=== PATIENT | male | born 1955 | race Caucasian/White ===

== ENCOUNTER 2018-10-25 08:54 | Inpatient (IN) | payer BC, OTHER ==
[2018-10-25 09:40] LABS: ADD MAN DIFF? NO
[2018-10-25 09:43] LABS: WHITE BLOOD COUNT 20.1 10^3/ul (4.8-10.8)
[2018-10-25 09:43] LABS: BASOPHILS % 0.2 % (0.0-2.0); HEMATOCRIT 28.8 % (42.0-52.0); HEMOGLOBIN 8.8 g/dl (14.0-18.0); LYMPHOCYTES # 0.8 10^3/ul (0.8-2.9); MEAN CORPUSCULAR HEMOGLOBIN 26.6 pg (29.0-33.0); MEAN CORPUSCULAR HGB CONC 30.6 g/dl (32.0-37.0); MEAN PLATELET VOLUME 10.8 fl (7.4-10.4); MONOCYTE # 0.7 10^3/ul (0.3-0.9); MONOCYTES % 3.5 % (0.0-11.0); NEUTROPHIL # 18.4 10^3/ul (1.6-7.5); NEUTROPHILS % 91.5 % (39.0-77.0); PLATELET COUNT 328 10^3/UL (140-415); RED BLOOD COUNT 3.31 10^6/ul (4.70-6.10); RED CELL DISTRIBUTION WIDTH 15.9 % (11.5-14.5)
[2018-10-25 10:02] LABS: ALANINE AMINOTRANSFERASE 24 IU/L (13-69); ALBUMIN 3.9 g/dl (3.3-4.9); ALBUMIN/GLOBULIN RATIO 1.39; ALKALINE PHOSPHATASE 62 IU/L (42-121); ANION GAP 9 (5-13); ASPARTATE AMINO TRANSFERASE 25 IU/L (15-46); BILIRUBIN,INDIRECT 0.7 mg/dl (0-1.1); BILIRUBIN,TOTAL 0.7 mg/dl (0.2-1.3); BLOOD UREA NITROGEN 19 mg/dl (7-20); CALCIUM 8.9 mg/dl (8.4-10.2); CARBON DIOXIDE 23 mmol/L (21-31); CHLORIDE 105 mmol/L (97-110); CREATININE 1.06 mg/dl (0.61-1.24); Estimated GFR > 60 mL/min (>60); GLUCOSE 121 mg/dl (70-220); POTASSIUM 4.5 mmol/L (3.5-5.1); SODIUM 137 mmol/L (135-144); TOTAL PROTEIN 6.7 g/dl (6.1-8.1)
[2018-10-25 10:12] LABS: TROPONIN-I < 0.012 ng/ml (0.000-0.120)
[2018-10-25 10:16] LABS: INR 1.09; PARTIAL THROMBOPLASTIN TIME 26.4 Sec (23.0-35.0); PROTIME 14.2 Sec (11.9-14.9); PT RATIO 1.1
[2018-10-25] MEDS: SODIUM CHLORIDE 0.9% 1L BAG IV* (10:20)
[2018-10-25] MEDS: LEVOFLOXACIN 750MG/D5W (PMX) 150 ML IVPB (10:20)
[2018-10-25 10:25] LABS: LACTIC ACID 3.3 mmol/L (0.5-2.0)
[2018-10-25 11:07] LABS: ADD UMIC YES; UR ASCORBIC ACID NEGATIVE (NEGATIVE); UR BACTERIA FEW /HPF (NONE SEEN); UR BILIRUBIN (Dip) NEGATIVE (NEGATIVE); UR BLOOD (Dip) 3+ mg/dL (NEGATIVE); UR CLARITY TURBID (CLEAR); UR COLOR YELLOW (YELLOW); UR GLUCOSE (Dip) NEGATIVE (NEGATIVE); UR KETONES (Dip) TRACE mg/dL (NEGATIVE); UR LEUKOCYTE ESTERASE (Dip) 2+ Leu/ul (NEGATIVE); UR NITRITE (Dip) NEGATIVE (NEGATIVE); UR RBC > 182 /HPF (0-5); UR SPECIFIC GRAVITY (Dip) 1.017 (1.003-1.030); UR SQUAMOUS EPITHELIAL CELL MODERATE /HPF (FEW); UR TOTAL PROTEIN (Dip) 2+ mg/dl (NEGATIVE); UR UROBILINOGEN (Dip) NEGATIVE (NEGATIVE); UR WBC > 182 /HPF (0-5)
[2018-10-25] MEDS ORDERED: MAGNESIUM HYDROXIDE 30ML CUP PO (12:00)
[2018-10-25] MEDS ORDERED: DOCUSATE SODIUM 100 MG CAP PO (12:00)
[2018-10-25] MEDS ORDERED: ONDANSETRON 4 MG INJ IV (12:00)
[2018-10-25] MEDS ORDERED: BISACODYL 10 MG SUPP PR (12:00)
[2018-10-25] MEDS ORDERED: NACL 0.9% 3 ML SYG IV (12:00)
[2018-10-25] MEDS: ACETAMINOPHEN 325 MG TAB PO ×2 (12:22→21:23)
[2018-10-25] MEDS: SOD CHLORIDE 0.9% 1,000 ML IV (13:04)
[2018-10-25 14:21] LABS: LACTIC ACID 1.5 mmol/L (0.5-2.0)
[2018-10-25] MEDS: CLOPIDOGREL 75 MG TAB PO (15:06)
[2018-10-25] MEDS: MEROPENEM 1 GM/50ML(PMX) 50 ML IVPB ×2 (15:07→23:04)
[2018-10-25] MEDS: ENOXAPARIN 40 MG/0.4 ML SYG SC (15:11)
[2018-10-25] MEDS: TAMSULOSIN (SR) 0.4 MG CAP PO (21:19)
[2018-10-25] MEDS: FAMOTIDINE 20 MG TAB PO (21:19)
[2018-10-25] MEDS: SOD CHLORIDE 0.9% 500 ML IV ×2 (21:27→22:33)
[2018-10-26] MEDS: MEROPENEM 1 GM/50ML(PMX) 50 ML IVPB ×3 (05:59→21:22)
[2018-10-26] MEDS: SOD CHLORIDE 0.9% 1,000 ML IV ×3 (06:02→23:17)
[2018-10-26 06:08] LABS: ADD MAN DIFF? NO
[2018-10-26 06:16] LABS: BASOPHILS % 0.3 % (0.0-2.0); EOSINOPHILS % 0.3 % (0.0-7.0); HEMATOCRIT 25.9 % (42.0-52.0); HEMOGLOBIN 7.8 g/dl (14.0-18.0); LYMPHOCYTES # 1.9 10^3/ul (0.8-2.9); LYMPHOCYTES % 17.4 % (15.0-51.0); MEAN CORPUSCULAR HEMOGLOBIN 26.2 pg (29.0-33.0); MEAN CORPUSCULAR HGB CONC 30.1 g/dl (32.0-37.0); MEAN CORPUSCULAR VOLUME 86.9 fl (82.0-101.0); MEAN PLATELET VOLUME 11.3 fl (7.4-10.4); MONOCYTE # 0.6 10^3/ul (0.3-0.9); MONOCYTES % 5.6 % (0.0-11.0); NEUTROPHIL # 8.5 10^3/ul (1.6-7.5); NEUTROPHILS % 75.9 % (39.0-77.0); PLATELET COUNT 241 10^3/UL (140-415); RED BLOOD COUNT 2.98 10^6/ul (4.70-6.10)
[2018-10-26 06:16] LABS: WHITE BLOOD COUNT 11.2 10^3/ul (4.8-10.8)
[2018-10-26 07:16] LABS: ALANINE AMINOTRANSFERASE 32 IU/L (13-69); ALBUMIN 2.9 g/dl (3.3-4.9); ALBUMIN/GLOBULIN RATIO 1.07; ALKALINE PHOSPHATASE 61 IU/L (42-121); ANION GAP 9 (5-13); ASPARTATE AMINO TRANSFERASE 36 IU/L (15-46); BILIRUBIN,INDIRECT 0.5 mg/dl (0-1.1); BILIRUBIN,TOTAL 0.5 mg/dl (0.2-1.3); BLOOD UREA NITROGEN 24 mg/dl (7-20); CALCIUM 7.6 mg/dl (8.4-10.2); CARBON DIOXIDE 20 mmol/L (21-31); CHLORIDE 108 mmol/L (97-110); CREATININE 1.29 mg/dl (0.61-1.24); Estimated GFR 56 mL/min (>60); GLUCOSE 91 mg/dl (70-220); MAGNESIUM 1.9 mg/dl (1.7-2.5); PHOSPHORUS 2.6 mg/dl (2.5-4.9); POTASSIUM 4.2 mmol/L (3.5-5.1); SODIUM 137 mmol/L (135-144); TOTAL PROTEIN 5.6 g/dl (6.1-8.1)
[2018-10-26] MEDS: CLOPIDOGREL 75 MG TAB PO (08:20)
[2018-10-26] MEDS: FAMOTIDINE 20 MG TAB PO ×2 (08:20→21:21)
[2018-10-26] MEDS: ENOXAPARIN 40 MG/0.4 ML SYG SC (08:25)
[2018-10-26 10:09] LABS: IRON < 10 ug/dl (35-150)
[2018-10-26 10:33] LABS: TOTAL IRON BINDING CAPACITY 303 ug/dl (241-421)
[2018-10-26] MEDS ORDERED: LEVOFLOXACIN 750MG/D5W (PMX) 150 ML IVPB (11:00)
[2018-10-26 12:43] LABS: FREE T4 (FREE THYROXINE) 1.09 ng/dl (0.78-2.44)
[2018-10-26 13:10] LABS: FERRITIN 33.6 ng/ml (11.1-264.0)
[2018-10-26 13:41] LABS: FOLATE 13.4 ng/ml (2.8-20.0)
[2018-10-26] MEDS: TAMSULOSIN (SR) 0.4 MG CAP PO (21:21)
[2018-10-26] MEDS: HYDROCODONE/APAP (5/325) TAB PO (21:28)
[2018-10-27] MEDS: MEROPENEM 1 GM/50ML(PMX) 50 ML IVPB (06:06)
[2018-10-27 06:19] LABS: ADD MAN DIFF? NO
[2018-10-27 06:32] LABS: BASOPHILS % 0.4 % (0.0-2.0); EOSINOPHILS # 0.2 10^3/ul (0.0-0.5); EOSINOPHILS % 1.9 % (0.0-7.0); HEMATOCRIT 26.7 % (42.0-52.0); HEMOGLOBIN 8.1 g/dl (14.0-18.0); LYMPHOCYTES # 2.3 10^3/ul (0.8-2.9); LYMPHOCYTES % 20.1 % (15.0-51.0); MEAN CORPUSCULAR HEMOGLOBIN 26.5 pg (29.0-33.0); MEAN CORPUSCULAR HGB CONC 30.3 g/dl (32.0-37.0); MEAN CORPUSCULAR VOLUME 87.3 fl (82.0-101.0); MEAN PLATELET VOLUME 11.1 fl (7.4-10.4); MONOCYTE # 0.8 10^3/ul (0.3-0.9); MONOCYTES % 7.2 % (0.0-11.0); NEUTROPHIL # 7.9 10^3/ul (1.6-7.5); NEUTROPHILS % 69.9 % (39.0-77.0); PLATELET COUNT 253 10^3/UL (140-415); RED BLOOD COUNT 3.06 10^6/ul (4.70-6.10); RED CELL DISTRIBUTION WIDTH 15.8 % (11.5-14.5)
[2018-10-27 06:32] LABS: WHITE BLOOD COUNT 11.3 10^3/ul (4.8-10.8)
[2018-10-27 07:08] LABS: ANION GAP 8 (5-13); BLOOD UREA NITROGEN 19 mg/dl (7-20); CARBON DIOXIDE 21 mmol/L (21-31); CHLORIDE 111 mmol/L (97-110); CREATININE 0.92 mg/dl (0.61-1.24); Estimated GFR > 60 mL/min (>60); GLUCOSE 93 mg/dl (70-220); POTASSIUM 4.6 mmol/L (3.5-5.1); SODIUM 140 mmol/L (135-144)
[2018-10-27 07:09] LABS: MAGNESIUM 2.1 mg/dl (1.7-2.5)
[2018-10-27] MEDS: ENOXAPARIN 40 MG/0.4 ML SYG SC (08:39)
[2018-10-27] MEDS: FAMOTIDINE 20 MG TAB PO ×2 (08:40→20:42)
[2018-10-27] MEDS: CLOPIDOGREL 75 MG TAB PO (08:40)
[2018-10-27] MEDS: SOD CHLORIDE 0.9% 1,000 ML IV (08:43)
[2018-10-27] MEDS: FERROUS SULFATE (EC) 325 MG TAB PO ×2 (10:42→20:42)
[2018-10-27] MEDS: LEVOFLOXACIN 750MG/D5W (PMX) 150 ML IVPB (10:42)
[2018-10-27] MEDS: TAMSULOSIN (SR) 0.4 MG CAP PO (20:42)
[2018-10-27] MEDS: ACETAMINOPHEN 325 MG TAB PO (23:07)
[2018-10-27 23:15] LABS: ADD UMIC YES; UR ASCORBIC ACID NEGATIVE (NEGATIVE); UR BILIRUBIN (Dip) NEGATIVE (NEGATIVE); UR BLOOD (Dip) 2+ mg/dL (NEGATIVE); UR CLARITY SLIGHTLY CLOUDY (CLEAR); UR COLOR YELLOW (YELLOW); UR GLUCOSE (Dip) NEGATIVE (NEGATIVE); UR KETONES (Dip) TRACE mg/dL (NEGATIVE); UR LEUKOCYTE ESTERASE (Dip) 3+ Leu/ul (NEGATIVE); UR NITRITE (Dip) NEGATIVE (NEGATIVE); UR RBC 27 /HPF (0-5); UR SPECIFIC GRAVITY (Dip) 1.019 (1.003-1.030); UR TOTAL PROTEIN (Dip) 1+ mg/dl (NEGATIVE); UR UROBILINOGEN (Dip) 1+ mg/dL (NEGATIVE); UR WBC > 182 /HPF (0-5)
[2018-10-28 05:21] LABS: OCCULT BLOOD STOOL NEGATIVE (NEGATIVE)
[2018-10-28 07:03] LABS: ADD MAN DIFF? NO
[2018-10-28 07:14] LABS: BASOPHILS % 0.3 % (0.0-2.0); EOSINOPHILS # 0.1 10^3/ul (0.0-0.5); EOSINOPHILS % 1.2 % (0.0-7.0); HEMOGLOBIN 7.4 g/dl (14.0-18.0); LYMPHOCYTES # 2.1 10^3/ul (0.8-2.9); LYMPHOCYTES % 20.8 % (15.0-51.0); MEAN CORPUSCULAR HEMOGLOBIN 26.2 pg (29.0-33.0); MEAN CORPUSCULAR HGB CONC 30.8 g/dl (32.0-37.0); MEAN CORPUSCULAR VOLUME 85.1 fl (82.0-101.0); MEAN PLATELET VOLUME 11.6 fl (7.4-10.4); MONOCYTE # 1.1 10^3/ul (0.3-0.9); MONOCYTES % 11.4 % (0.0-11.0); NEUTROPHIL # 6.6 10^3/ul (1.6-7.5); NEUTROPHILS % 65.7 % (39.0-77.0); PLATELET COUNT 234 10^3/UL (140-415); RED BLOOD COUNT 2.82 10^6/ul (4.70-6.10); RED CELL DISTRIBUTION WIDTH 15.9 % (11.5-14.5)
[2018-10-28 07:37] LABS: MAGNESIUM 2.1 mg/dl (1.7-2.5)
[2018-10-28 07:46] LABS: ANION GAP 7 (5-13); BLOOD UREA NITROGEN 15 mg/dl (7-20); CALCIUM 7.9 mg/dl (8.4-10.2); CARBON DIOXIDE 23 mmol/L (21-31); CHLORIDE 108 mmol/L (97-110); CREATININE 0.82 mg/dl (0.61-1.24); Estimated GFR > 60 mL/min (>60); GLUCOSE 96 mg/dl (70-220); POTASSIUM 4.3 mmol/L (3.5-5.1); SODIUM 138 mmol/L (135-144)
[2018-10-28] MEDS: FAMOTIDINE 20 MG TAB PO ×2 (09:02→20:29)
[2018-10-28] MEDS: CLOPIDOGREL 75 MG TAB PO (09:02)
[2018-10-28] MEDS: FERROUS SULFATE (EC) 325 MG TAB PO ×2 (09:02→20:29)
[2018-10-28] MEDS: ENOXAPARIN 40 MG/0.4 ML SYG SC (09:06)
[2018-10-28] MEDS: LEVOFLOXACIN 750MG/D5W (PMX) 150 ML IVPB (10:50)
[2018-10-28] MEDS: CYANOCOBALAMIN 500 MCG TAB GTB (12:08)
[2018-10-28] MEDS: FOLIC ACID 1 MG TAB GTB (12:08)
[2018-10-28] MEDS: ACETAMINOPHEN 325 MG TAB PO (12:08)
[2018-10-28] MEDS: HYDROCODONE/APAP (5/325) TAB PO (19:49)
[2018-10-28] MEDS: TAMSULOSIN (SR) 0.4 MG CAP PO (20:29)
[2018-10-28 21:12] LABS: PROSTATE SPECIFIC ANTIGEN 8.6 ng/ml (0.0-4.0)
[2018-10-29] MEDS: HYDROCODONE/APAP (5/325) TAB PO (01:37)
[2018-10-29 05:55] LABS: WHITE BLOOD COUNT 9.2 10^3/ul (4.8-10.8)
[2018-10-29 05:55] LABS: ADD MAN DIFF? NO; BASOPHILS % 0.3 % (0.0-2.0); EOSINOPHILS # 0.3 10^3/ul (0.0-0.5); EOSINOPHILS % 2.8 % (0.0-7.0); HEMATOCRIT 25.1 % (42.0-52.0); HEMOGLOBIN 7.7 g/dl (14.0-18.0); LYMPHOCYTES # 2.6 10^3/ul (0.8-2.9); LYMPHOCYTES % 28.2 % (15.0-51.0); MEAN CORPUSCULAR HGB CONC 30.7 g/dl (32.0-37.0); MEAN CORPUSCULAR VOLUME 84.8 fl (82.0-101.0); MEAN PLATELET VOLUME 11.8 fl (7.4-10.4); MONOCYTES % 10.5 % (0.0-11.0); NEUTROPHIL # 5.3 10^3/ul (1.6-7.5); NEUTROPHILS % 57.3 % (39.0-77.0); NUCLEATED RED BLOOD CELLS # 0.1 10^3/ul (0.0-0.0); NUCLEATED RED BLOOD CELLS% 0.5 /100WBC (0.0-0.0); PLATELET COUNT 256 10^3/UL (140-415); RED BLOOD COUNT 2.96 10^6/ul (4.70-6.10); RED CELL DISTRIBUTION WIDTH 15.9 % (11.5-14.5)
[2018-10-29 06:29] LABS: ALANINE AMINOTRANSFERASE 39 IU/L (13-69); ALBUMIN 2.9 g/dl (3.3-4.9); ALKALINE PHOSPHATASE 117 IU/L (42-121); ANION GAP 8 (5-13); ASPARTATE AMINO TRANSFERASE 39 IU/L (15-46); BILIRUBIN,INDIRECT 0.3 mg/dl (0-1.1); BILIRUBIN,TOTAL 0.3 mg/dl (0.2-1.3); BLOOD UREA NITROGEN 14 mg/dl (7-20); CALCIUM 8.2 mg/dl (8.4-10.2); CARBON DIOXIDE 25 mmol/L (21-31); CHLORIDE 107 mmol/L (97-110); CREATININE 0.75 mg/dl (0.61-1.24); Estimated GFR > 60 mL/min (>60); GLUCOSE 105 mg/dl (70-220); POTASSIUM 4.3 mmol/L (3.5-5.1); SODIUM 140 mmol/L (135-144); TOTAL PROTEIN 5.8 g/dl (6.1-8.1)
[2018-10-29 06:38] LABS: PHOSPHORUS 3.3 mg/dl (2.5-4.9)
[2018-10-29 06:38] LABS: MAGNESIUM 2.1 mg/dl (1.7-2.5)
[2018-10-29] MEDS: FAMOTIDINE 20 MG TAB PO (08:30)
[2018-10-29] MEDS: FOLIC ACID 1 MG TAB GTB (08:30)
[2018-10-29] MEDS: FERROUS SULFATE (EC) 325 MG TAB PO (08:30)
[2018-10-29] MEDS: CYANOCOBALAMIN 500 MCG TAB GTB (08:30)
[2018-10-29] MEDS: LEVOFLOXACIN 750MG/D5W (PMX) 150 ML IVPB (09:36)
== END 2018-10-29 14:20 | disposition home health service (06) | DRG 871 ==
LOC: E/R 08:54 → 2NE 11:23
DX: A41.9 Sepsis, unspecified organism (principal); N17.0 Acute kidney failure with tubular necrosis; N13.6 Pyonephrosis; N17.9 Acute kidney failure, unspecified; E53.0 Riboflavin deficiency; Z68.41 Body mass index [BMI] 40.0-44.9, adult; E66.01 Morbid (severe) obesity due to excess calories; F17.210 Nicotine dependence, cigarettes, uncomplicated; D50.9 Iron deficiency anemia, unspecified; I73.9 Peripheral vascular disease, unspecified; N40.0 Benign prostatic hyperplasia without lower urinary tract symptoms; D64.9 Anemia, unspecified; I87.8 Other specified disorders of veins; R31.0 Gross hematuria; Z79.02 Long term (current) use of antithrombotics/antiplatelets
CPT/HCPCS: 36415; 71045; 74176; 76775; 80048; 80053; 81001; 82270; 82607; 82728; 82746; 83540; 83605; 83735; 84100; 84153; 84154; 84439; 84443; 84484; 85025; 85610; 85730; 87040; 87086; 87400; 88104; 93005; 93922; 93970; 96365; 99291-25

== ENCOUNTER 2018-11-04 16:31 | Inpatient (IN) | payer BC ==
[~2018-11-04 16:31] MED LIST: MAGNESIUM SULFATE 1 GM/100 ML D5W IVPB
[2018-11-04] MEDS: ALBUTEROL 0.5% (NEB) 2.5 MG/0.5 ML AMP INH (18:19)
[2018-11-04] MEDS: IPRATROPIUM (NEB) 0.5 MG/2.5 ML AMP INH (18:19)
[2018-11-04 18:26] LABS: ADD MAN DIFF? NO
[2018-11-04] MEDS: METHYLPREDNISOLONE 125 MG INJ IV (18:29)
[2018-11-04 18:30] LABS: WHITE BLOOD COUNT 10.8 10^3/ul (4.8-10.8)
[2018-11-04 18:30] LABS: BASOPHIL # 0.1 10^3/ul (0.0-0.1); BASOPHILS % 0.6 % (0.0-2.0); EOSINOPHILS # 0.4 10^3/ul (0.0-0.5); EOSINOPHILS % 3.5 % (0.0-7.0); HEMATOCRIT 30.9 % (42.0-52.0); HEMOGLOBIN 9.3 g/dl (14.0-18.0); LYMPHOCYTES # 2.3 10^3/ul (0.8-2.9); LYMPHOCYTES % 21.5 % (15.0-51.0); MEAN CORPUSCULAR HEMOGLOBIN 25.3 pg (29.0-33.0); MEAN CORPUSCULAR HGB CONC 30.1 g/dl (32.0-37.0); MEAN CORPUSCULAR VOLUME 84.2 fl (82.0-101.0); MEAN PLATELET VOLUME 10.5 fl (7.4-10.4); MONOCYTE # 0.8 10^3/ul (0.3-0.9); MONOCYTES % 7.2 % (0.0-11.0); NEUTROPHIL # 7.2 10^3/ul (1.6-7.5); NEUTROPHILS % 66.6 % (39.0-77.0); PLATELET COUNT 458 10^3/UL (140-415); RED BLOOD COUNT 3.67 10^6/ul (4.70-6.10); RED CELL DISTRIBUTION WIDTH 17.3 % (11.5-14.5)
[2018-11-04 18:46] LABS: ANION GAP 9 (5-13); BLOOD UREA NITROGEN 18 mg/dl (7-20); CALCIUM 8.7 mg/dl (8.4-10.2); CARBON DIOXIDE 26 mmol/L (21-31); CHLORIDE 105 mmol/L (97-110); Estimated GFR > 60 mL/min (>60); GLUCOSE 103 mg/dl (70-220); POTASSIUM 4.4 mmol/L (3.5-5.1); SODIUM 140 mmol/L (135-144)
[2018-11-04 18:49] LABS: INR 1.05; PROTIME 13.8 Sec (11.9-14.9); PT RATIO 1.1
[2018-11-04 19:10] LABS: B-TYPE NATRIURETIC PEPTIDE 882 PG/ML (0-125)
[2018-11-04] MEDS: ASPIRIN 81 MG TAB PO (19:58)
[2018-11-04] MEDS: ONDANSETRON 4 MG INJ IV (20:19)
[2018-11-04] MEDS: morphine 4 MG/ML VIAL IV (20:19)
[2018-11-04] MEDS ORDERED: ACETAMINOPHEN 325 MG TAB PO (20:30)
[2018-11-04] MEDS ORDERED: ONDANSETRON 4 MG INJ IV (20:30)
[2018-11-04] MEDS: ENOXAPARIN 60 MG/0.6 ML SYG SC (21:52)
[2018-11-04] MEDS: FUROSEMIDE 40 MG INJ IV (21:52)
[2018-11-05] MEDS ORDERED: ACETAMINOPHEN 325 MG TAB PO (01:30)
[2018-11-05] MEDS: METOPROLOL 25 MG TAB PO ×2 (01:30→11:05)
[2018-11-05] MEDS: LEVOFLOXACIN 750 MG TABLET PO (09:09)
[2018-11-05] MEDS: ASPIRIN 81 MG TAB PO (09:09)
[2018-11-05] MEDS: FERROUS SULFATE (EC) 325 MG TAB PO ×2 (09:09→21:00)
[2018-11-05] MEDS: ENOXAPARIN 60 MG/0.6 ML SYG SC (09:11)
[2018-11-05 12:15] LABS: CREATINE KINASE 469 IU/L (23-200)
[2018-11-05 12:25] LABS: CK INDEX 7.7
[2018-11-05] MEDS: FUROSEMIDE 20 MG INJ IV (16:27)
[2018-11-05] MEDS ORDERED: MIDAZOLAM 1 MG/ML 2 ML INJ ×3 (17:00→18:58)
[2018-11-05] MEDS ORDERED: LORAZEPAM 2 MG INJ (17:15)
[2018-11-05] MEDS ORDERED: PROPOFOL 100 ML (17:22)
[2018-11-05] MEDS ORDERED: MAGNESIUM SULFATE 2 GM/50 ML 50 ML (17:31)
[2018-11-05] MEDS ORDERED: HEPARIN 1000 UNITS/ML 10 ML INJ (17:47)
[2018-11-05] MEDS ORDERED: LIDOCAINE 2% (MDV) 20 ML INJ (17:47)
[2018-11-05] MEDS ORDERED: IODIXANOL LOCM 100 ML BTL (17:47)
[2018-11-05] MEDS ORDERED: NITROGLYCERIN (IC) 100 MCG/ML INJ (17:48)
[2018-11-05] MEDS ORDERED: VERAPAMIL 5 MG INJ (17:48)
[2018-11-05] MEDS: LORAZEPAM 2 MG INJ IV (18:15)
[2018-11-05] MEDS ORDERED: AMIODARONE 150 MG INJ (18:27)
[2018-11-05] MEDS: MAGNESIUM SULFATE 1 GM/D5W 100 ML IVPB ×2 (18:27→18:52)
[2018-11-05] MEDS ORDERED: AMIODARONE 150MG/D5W BOLUS 100 ML IV (18:30)
[2018-11-05] MEDS ORDERED: MAGNESIUM SULFATE 2 GM/50 ML 50 ML IVPB (18:30)
[2018-11-05] MEDS ORDERED: NORepinephrine 8MG/250 ML (PMX 250 ML (18:35)
[2018-11-05] MEDS ORDERED: BIVALIRUDIN 250MG /NS 50 ML 50 ML IVPB ×3 (18:37→19:46)
[2018-11-05] MEDS ORDERED: TICAGRELOR 90 MG TABLET (18:44)
[2018-11-05] MEDS: AMIODARONE 150MG/D5W BOLUS 100 ML IV (18:49)
[2018-11-05] MEDS ORDERED: FENTAnyl 50 MCG/ML VIAL (18:49)
[2018-11-05] MEDS: MAGNESIUM SULFATE 2 GM/50 ML 50 ML IVPB (18:51)
[2018-11-05] MEDS: SOD CHLORIDE 0.9% 500 ML IV (18:51)
[2018-11-05] MEDS: MIDAZOLAM 1 MG/ML 2 ML INJ IV (18:51)
[2018-11-05] MEDS ORDERED: CANGRELOR TETRASODIUM/ NS 250 50 MG (18:59)
[2018-11-05] MEDS: BIVALIRUDIN 250MG /NS 50 ML 50 ML IVPB ×3 (19:41→22:41)
[2018-11-05] MEDS: PROPOFOL 100 ML IV ×2 (20:00→21:09)
[2018-11-05] MEDS: NORepinephrine 8MG/250 ML (PMX 250 ML IV (20:00)
[2018-11-05] MEDS: SOD CHLORIDE 0.9% 1,000 ML IV (20:44)
[2018-11-05 20:52] LABS: AADO2 Arterial 327.1 mmHg (7.0-24.0); Allen Test ACCEPTAB; Arterial Base Excess -0.6 mmol/L (-3.0-3); Arterial Blood Gas Oxygen Sat 99.8 mmHG (95.0-98.0); Arterial COHb 0 % (0.0-3.0); Arterial Fraction of Oxyhgb 99.7 % (93.0-99.0); Arterial HCO3 23.6 mmol/L (22.0-26.0); Arterial MetHb 0.1 % (0.0-1.5); MODE VENT - AC; Site Right Radial
[2018-11-05] MEDS: TICAGRELOR 90 MG TABLET PO (21:00)
[2018-11-05] MEDS: TAMSULOSIN (SR) 0.4 MG CAP PO (21:00)
[2018-11-05] MEDS: ATORVASTATIN 80 MG TAB PO (21:00)
[2018-11-05] MEDS: AMIODARONE 900 MG in DEXTROSE 5% 482 ML IV (22:00)
[2018-11-05] MEDS ORDERED: METOPROLOL 25 MG TAB PO (22:00)
[2018-11-06] MEDS: PROPOFOL 100 ML IV ×2 (01:06→06:19)
[2018-11-06 05:12] LABS: ADD MAN DIFF? NO
[2018-11-06 05:17] LABS: BASOPHILS % 0.2 % (0.0-2.0); EOSINOPHILS # 0.1 10^3/ul (0.0-0.5); EOSINOPHILS % 0.5 % (0.0-7.0); HEMATOCRIT 30.1 % (42.0-52.0); HEMOGLOBIN 9.1 g/dl (14.0-18.0); LYMPHOCYTES # 2.5 10^3/ul (0.8-2.9); LYMPHOCYTES % 15.7 % (15.0-51.0); MEAN CORPUSCULAR HEMOGLOBIN 25.4 pg (29.0-33.0); MEAN CORPUSCULAR HGB CONC 30.2 g/dl (32.0-37.0); MEAN CORPUSCULAR VOLUME 84.1 fl (82.0-101.0); MEAN PLATELET VOLUME 10.7 fl (7.4-10.4); MONOCYTE # 1.3 10^3/ul (0.3-0.9); MONOCYTES % 7.9 % (0.0-11.0); NEUTROPHILS % 74.9 % (39.0-77.0); PLATELET COUNT 477 10^3/UL (140-415); RED BLOOD COUNT 3.58 10^6/ul (4.70-6.10); RED CELL DISTRIBUTION WIDTH 17.9 % (11.5-14.5)
[2018-11-06 05:48] LABS: CK INDEX 6.1; CREATINE KINASE 325 IU/L (23-200)
[2018-11-06 05:51] LABS: ANION GAP 10 (5-13); BLOOD UREA NITROGEN 31 mg/dl (7-20); CALCIUM 7.9 mg/dl (8.4-10.2); CARBON DIOXIDE 25 mmol/L (21-31); CHLORIDE 104 mmol/L (97-110); CREATININE 1.26 mg/dl (0.61-1.24); Estimated GFR 57 mL/min (>60); GLUCOSE 145 mg/dl (70-220); POTASSIUM 4.5 mmol/L (3.5-5.1); SODIUM 139 mmol/L (135-144)
[2018-11-06 05:55] LABS: MAGNESIUM 3.3 mg/dl (1.7-2.5)
[2018-11-06] MEDS: TICAGRELOR 90 MG TABLET PO ×2 (08:57→20:33)
[2018-11-06] MEDS: ASPIRIN 81 MG TAB PO (08:58)
[2018-11-06] MEDS: FERROUS SULFATE (EC) 325 MG TAB PO ×2 (08:58→20:21)
[2018-11-06 10:36] LABS: AADO2 Arterial 134.6 mmHg (7.0-24.0); Allen Test ACCEPTAB; Arterial Base Excess -0.2 mmol/L (-3.0-3); Arterial Blood Gas Oxygen Sat 98.2 mmHG (95.0-98.0); Arterial COHb 0.5 % (0.0-3.0); Arterial Fraction of Oxyhgb 97.5 % (93.0-99.0); Arterial HCO3 23.6 mmol/L (22.0-26.0); Arterial MetHb 0.2 % (0.0-1.5); Arterial pCO2 35.7 mmhg (35-45); Blood Gas PS 10; MODE VENT - CPAP; Site Left Radial
[2018-11-06] MEDS: HYDROmorphONE 0.5 MG/0.5 ML SYG IV ×3 (17:21→22:56)
[2018-11-06] MEDS: DIPHENHYDRAMINE 50 MG CAP PO (20:21)
[2018-11-06] MEDS: ATORVASTATIN 80 MG TAB PO (20:21)
[2018-11-06] MEDS: TAMSULOSIN (SR) 0.4 MG CAP PO (20:21)
[2018-11-06] MEDS: AMIODARONE 200 MG TAB PO (20:25)
[2018-11-06] MEDS: CEPASTAT LOZENGE MT (22:28)
[2018-11-07] MEDS: CEPASTAT LOZENGE MT ×4 (01:09→21:17)
[2018-11-07] MEDS: HYDROmorphONE 0.5 MG/0.5 ML SYG IV ×9 (01:10→23:30)
[2018-11-07 05:19] LABS: ADD MAN DIFF? NO
[2018-11-07 05:23] LABS: WHITE BLOOD COUNT 12.1 10^3/ul (4.8-10.8)
[2018-11-07 05:23] LABS: BASOPHILS % 0.2 % (0.0-2.0); EOSINOPHILS # 0.3 10^3/ul (0.0-0.5); EOSINOPHILS % 2.3 % (0.0-7.0); HEMATOCRIT 28.1 % (42.0-52.0); HEMOGLOBIN 8.4 g/dl (14.0-18.0); LYMPHOCYTES # 3.8 10^3/ul (0.8-2.9); LYMPHOCYTES % 30.9 % (15.0-51.0); MEAN CORPUSCULAR HEMOGLOBIN 24.7 pg (29.0-33.0); MEAN CORPUSCULAR HGB CONC 29.9 g/dl (32.0-37.0); MEAN CORPUSCULAR VOLUME 82.6 fl (82.0-101.0); MEAN PLATELET VOLUME 10.7 fl (7.4-10.4); MONOCYTE # 0.9 10^3/ul (0.3-0.9); MONOCYTES % 7.6 % (0.0-11.0); NEUTROPHIL # 7.1 10^3/ul (1.6-7.5); NEUTROPHILS % 58.6 % (39.0-77.0); PLATELET COUNT 390 10^3/UL (140-415)
[2018-11-07 05:44] LABS: ALANINE AMINOTRANSFERASE 166 IU/L (13-69); ALBUMIN 3.1 g/dl (3.3-4.9); ALKALINE PHOSPHATASE 99 IU/L (42-121); ANION GAP 8 (5-13); ASPARTATE AMINO TRANSFERASE 137 IU/L (15-46); BILIRUBIN,INDIRECT 0.4 mg/dl (0-1.1); BILIRUBIN,TOTAL 0.4 mg/dl (0.2-1.3); BLOOD UREA NITROGEN 28 mg/dl (7-20); CALCIUM 8.2 mg/dl (8.4-10.2); CARBON DIOXIDE 27 mmol/L (21-31); CHLORIDE 104 mmol/L (97-110); Estimated GFR > 60 mL/min (>60); GLUCOSE 115 mg/dl (70-220); POTASSIUM 4.2 mmol/L (3.5-5.1); SODIUM 139 mmol/L (135-144); TOTAL PROTEIN 5.9 g/dl (6.1-8.1)
[2018-11-07 05:47] LABS: MAGNESIUM 2.3 mg/dl (1.7-2.5)
[2018-11-07 05:47] LABS: PHOSPHORUS 3.6 mg/dl (2.5-4.9)
[2018-11-07] MEDS: AMIODARONE 200 MG TAB PO ×2 (08:19→20:28)
[2018-11-07] MEDS: ASPIRIN 81 MG TAB PO (08:19)
[2018-11-07] MEDS: FERROUS SULFATE (EC) 325 MG TAB PO ×2 (08:19→20:26)
[2018-11-07] MEDS: TICAGRELOR 90 MG TABLET PO ×2 (08:22→20:38)
[2018-11-07] MEDS: TAMSULOSIN (SR) 0.4 MG CAP PO ×2 (10:43→20:27)
[2018-11-07] MEDS: DOCUSATE SODIUM 100 MG CAP PO ×2 (10:50→20:28)
[2018-11-07] MEDS: POLYETHYLENE GLYCOL 17 GM PACKET PO (10:50)
[2018-11-07] MEDS ORDERED: MAGNESIUM HYDROXIDE 30ML CUP PO (11:00)
[2018-11-07] MEDS ORDERED: BISACODYL 10 MG SUPP PR (11:00)
[2018-11-07] MEDS: FAMOTIDINE 20 MG TAB PO (11:26)
[2018-11-07] MEDS: ONDANSETRON 4 MG INJ IV (13:59)
[2018-11-07] MEDS: FUROSEMIDE 40 MG INJ IV (16:09)
[2018-11-07] MEDS: DIPHENHYDRAMINE 50 MG CAP PO (20:27)
[2018-11-07] MEDS: ATORVASTATIN 80 MG TAB PO (20:27)
[2018-11-08] MEDS: HYDROmorphONE 0.5 MG/0.5 ML SYG IV ×5 (04:06→22:22)
[2018-11-08] MEDS: FUROSEMIDE 40 MG INJ IV (05:31)
[2018-11-08 06:06] LABS: ADD MAN DIFF? NO
[2018-11-08 06:08] LABS: BASOPHILS % 0.3 % (0.0-2.0); EOSINOPHILS # 0.5 10^3/ul (0.0-0.5); EOSINOPHILS % 4.1 % (0.0-7.0); HEMATOCRIT 29.3 % (42.0-52.0); HEMOGLOBIN 8.9 g/dl (14.0-18.0); LYMPHOCYTES # 2.9 10^3/ul (0.8-2.9); LYMPHOCYTES % 23.3 % (15.0-51.0); MEAN CORPUSCULAR HEMOGLOBIN 25.1 pg (29.0-33.0); MEAN CORPUSCULAR HGB CONC 30.4 g/dl (32.0-37.0); MEAN CORPUSCULAR VOLUME 82.5 fl (82.0-101.0); MEAN PLATELET VOLUME 10.7 fl (7.4-10.4); MONOCYTES % 7.6 % (0.0-11.0); NEUTROPHILS % 64.2 % (39.0-77.0); PLATELET COUNT 459 10^3/UL (140-415); RED BLOOD COUNT 3.55 10^6/ul (4.70-6.10); RED CELL DISTRIBUTION WIDTH 17.4 % (11.5-14.5)
[2018-11-08 06:08] LABS: WHITE BLOOD COUNT 12.4 10^3/ul (4.8-10.8)
[2018-11-08 06:36] LABS: MAGNESIUM 1.9 mg/dl (1.7-2.5)
[2018-11-08 06:36] LABS: PHOSPHORUS 4.2 mg/dl (2.5-4.9)
[2018-11-08 06:42] LABS: ANION GAP 10 (5-13); BLOOD UREA NITROGEN 25 mg/dl (7-20); CALCIUM 8.9 mg/dl (8.4-10.2); CARBON DIOXIDE 28 mmol/L (21-31); CHLORIDE 100 mmol/L (97-110); CREATININE 1.01 mg/dl (0.61-1.24); Estimated GFR > 60 mL/min (>60); GLUCOSE 100 mg/dl (70-220); POTASSIUM 4.1 mmol/L (3.5-5.1); SODIUM 138 mmol/L (135-144)
[2018-11-08] MEDS: AMIODARONE 200 MG TAB PO ×2 (10:29→20:27)
[2018-11-08] MEDS: FAMOTIDINE 20 MG TAB PO (10:30)
[2018-11-08] MEDS: FERROUS SULFATE (EC) 325 MG TAB PO ×2 (10:30→20:26)
[2018-11-08] MEDS: ASPIRIN 81 MG TAB PO (10:30)
[2018-11-08] MEDS: TICAGRELOR 90 MG TABLET PO ×2 (10:37→21:05)
[2018-11-08] MEDS: POLYETHYLENE GLYCOL 17 GM PACKET PO (10:37)
[2018-11-08] MEDS: DOCUSATE SODIUM 100 MG CAP PO ×2 (10:37→20:24)
[2018-11-08] MEDS: BUMETANIDE 3 MG in DEXTROSE 5% 18 ML IV (13:52)
[2018-11-08] MEDS: MAGNESIUM SULFATE 2 GM/50 ML 50 ML IVPB (14:37)
[2018-11-08] MEDS: CEPASTAT LOZENGE MT ×3 (16:20→22:14)
[2018-11-08] MEDS: DIPHENHYDRAMINE 50 MG CAP PO (20:23)
[2018-11-08] MEDS: ATORVASTATIN 80 MG TAB PO (20:23)
[2018-11-08] MEDS: TAMSULOSIN (SR) 0.4 MG CAP PO (20:24)
[2018-11-08] MEDS: ZOLPIDEM 5 MG TAB PO (22:14)
[2018-11-08] MEDS: GUAIFENESIN 20 MG/ML 5ML CUP PO (22:14)
[2018-11-09] MEDS: HYDROmorphONE 0.5 MG/0.5 ML SYG IV ×3 (02:01→08:55)
[2018-11-09 06:13] LABS: ADD MAN DIFF? NO
[2018-11-09 06:19] LABS: BASOPHIL # 0.1 10^3/ul (0.0-0.1); BASOPHILS % 0.3 % (0.0-2.0); EOSINOPHILS # 0.4 10^3/ul (0.0-0.5); EOSINOPHILS % 2.5 % (0.0-7.0); HEMATOCRIT 32.3 % (42.0-52.0); HEMOGLOBIN 9.8 g/dl (14.0-18.0); LYMPHOCYTES % 20.5 % (15.0-51.0); MEAN CORPUSCULAR HEMOGLOBIN 24.7 pg (29.0-33.0); MEAN CORPUSCULAR HGB CONC 30.3 g/dl (32.0-37.0); MEAN CORPUSCULAR VOLUME 81.4 fl (82.0-101.0); MEAN PLATELET VOLUME 10.5 fl (7.4-10.4); MONOCYTE # 1.2 10^3/ul (0.3-0.9); NEUTROPHIL # 9.9 10^3/ul (1.6-7.5); NEUTROPHILS % 68.4 % (39.0-77.0); PLATELET COUNT 519 10^3/UL (140-415); RED BLOOD COUNT 3.97 10^6/ul (4.70-6.10); RED CELL DISTRIBUTION WIDTH 17.4 % (11.5-14.5)
[2018-11-09 06:19] LABS: WHITE BLOOD COUNT 14.5 10^3/ul (4.8-10.8)
[2018-11-09 06:52] LABS: MAGNESIUM 1.9 mg/dl (1.7-2.5)
[2018-11-09 06:52] LABS: PHOSPHORUS 4.4 mg/dl (2.5-4.9)
[2018-11-09 07:02] LABS: ANION GAP 9 (5-13); BLOOD UREA NITROGEN 24 mg/dl (7-20); CALCIUM 8.8 mg/dl (8.4-10.2); CARBON DIOXIDE 29 mmol/L (21-31); CHLORIDE 99 mmol/L (97-110); CREATININE 1.04 mg/dl (0.61-1.24); Estimated GFR > 60 mL/min (>60); GLUCOSE 108 mg/dl (70-220); POTASSIUM 3.8 mmol/L (3.5-5.1); SODIUM 137 mmol/L (135-144)
[2018-11-09] MEDS: FERROUS SULFATE (EC) 325 MG TAB PO ×2 (08:05→20:08)
[2018-11-09] MEDS: DOCUSATE SODIUM 100 MG CAP PO ×2 (08:05→20:08)
[2018-11-09] MEDS: AMIODARONE 200 MG TAB PO ×2 (08:06→20:08)
[2018-11-09] MEDS: ASPIRIN 81 MG TAB PO (08:06)
[2018-11-09] MEDS: FAMOTIDINE 20 MG TAB PO (08:06)
[2018-11-09] MEDS: TICAGRELOR 90 MG TABLET PO ×2 (08:08→20:15)
[2018-11-09] MEDS: POLYETHYLENE GLYCOL 17 GM PACKET PO (08:16)
[2018-11-09] MEDS: CEPASTAT LOZENGE MT ×2 (08:38→15:45)
[2018-11-09] MEDS: BUMETANIDE 1 MG INJ IV ×2 (08:38→17:27)
[2018-11-09] MEDS: LISINOPRIL 5 MG TAB PO ×2 (09:00→15:45)
[2018-11-09] MEDS: HYDROCODONE/APAP (5/325) TAB PO ×3 (11:56→21:12)
[2018-11-09] MEDS: GUAIFENESIN 20 MG/ML 5ML CUP PO ×2 (15:22→20:08)
[2018-11-09] MEDS: TAMSULOSIN (SR) 0.4 MG CAP PO (20:08)
[2018-11-09] MEDS: DIPHENHYDRAMINE 50 MG CAP PO (20:08)
[2018-11-09] MEDS: ATORVASTATIN 80 MG TAB PO (20:08)
[2018-11-10] MEDS: ZOLPIDEM 5 MG TAB PO (00:40)
[2018-11-10] MEDS: GUAIFENESIN 20 MG/ML 5ML CUP PO ×3 (04:19→20:59)
[2018-11-10] MEDS: HYDROCODONE/APAP (5/325) TAB PO ×4 (04:20→21:49)
[2018-11-10] MEDS: BUMETANIDE 1 MG INJ IV ×2 (06:04→17:13)
[2018-11-10 06:45] LABS: B-TYPE NATRIURETIC PEPTIDE 993 PG/ML (0-125)
[2018-11-10 06:58] LABS: ALANINE AMINOTRANSFERASE 59 IU/L (13-69); ALBUMIN 3.4 g/dl (3.3-4.9); ALBUMIN/GLOBULIN RATIO 1.03; ALKALINE PHOSPHATASE 87 IU/L (42-121); ANION GAP 11 (5-13); ASPARTATE AMINO TRANSFERASE 33 IU/L (15-46); BILIRUBIN,INDIRECT 0.6 mg/dl (0-1.1); BILIRUBIN,TOTAL 0.6 mg/dl (0.2-1.3); BLOOD UREA NITROGEN 23 mg/dl (7-20); CALCIUM 8.8 mg/dl (8.4-10.2); CARBON DIOXIDE 28 mmol/L (21-31); CHLORIDE 97 mmol/L (97-110); CREATININE 1.05 mg/dl (0.61-1.24); Estimated GFR > 60 mL/min (>60); GLUCOSE 107 mg/dl (70-220); MAGNESIUM 1.9 mg/dl (1.7-2.5); POTASSIUM 3.9 mmol/L (3.5-5.1); SODIUM 136 mmol/L (135-144); TOTAL PROTEIN 6.7 g/dl (6.1-8.1)
[2018-11-10] MEDS: ASPIRIN 81 MG TAB PO (08:41)
[2018-11-10] MEDS: DOCUSATE SODIUM 100 MG CAP PO ×2 (08:41→20:56)
[2018-11-10] MEDS: AMIODARONE 200 MG TAB PO ×2 (08:42→20:59)
[2018-11-10] MEDS: FAMOTIDINE 20 MG TAB PO (08:43)
[2018-11-10] MEDS: LISINOPRIL 5 MG TAB PO (08:43)
[2018-11-10] MEDS: FERROUS SULFATE (EC) 325 MG TAB PO ×2 (08:43→20:59)
[2018-11-10] MEDS: POLYETHYLENE GLYCOL 17 GM PACKET PO (09:00)
[2018-11-10] MEDS: TICAGRELOR 90 MG TABLET PO ×2 (09:03→20:56)
[2018-11-10] MEDS: DIPHENHYDRAMINE 50 MG CAP PO (20:55)
[2018-11-10] MEDS: ATORVASTATIN 80 MG TAB PO (20:56)
[2018-11-10] MEDS: TAMSULOSIN (SR) 0.4 MG CAP PO (20:59)
[2018-11-11] MEDS: HYDROCODONE/APAP (5/325) TAB PO ×4 (04:20→20:29)
[2018-11-11 05:22] LABS: ADD MAN DIFF? NO
[2018-11-11 05:42] LABS: BASOPHILS % 0.3 % (0.0-2.0); EOSINOPHILS # 0.7 10^3/ul (0.0-0.5); EOSINOPHILS % 5.2 % (0.0-7.0); HEMATOCRIT 33.8 % (42.0-52.0); HEMOGLOBIN 10.4 g/dl (14.0-18.0); LYMPHOCYTES # 2.9 10^3/ul (0.8-2.9); LYMPHOCYTES % 22.3 % (15.0-51.0); MEAN CORPUSCULAR HEMOGLOBIN 24.9 pg (29.0-33.0); MEAN CORPUSCULAR HGB CONC 30.8 g/dl (32.0-37.0); MEAN CORPUSCULAR VOLUME 80.9 fl (82.0-101.0); MEAN PLATELET VOLUME 10.3 fl (7.4-10.4); MONOCYTE # 1.2 10^3/ul (0.3-0.9); MONOCYTES % 9.3 % (0.0-11.0); NEUTROPHIL # 8.1 10^3/ul (1.6-7.5); NEUTROPHILS % 62.4 % (39.0-77.0); PLATELET COUNT 579 10^3/UL (140-415); RED BLOOD COUNT 4.18 10^6/ul (4.70-6.10); RED CELL DISTRIBUTION WIDTH 17.9 % (11.5-14.5)
[2018-11-11 05:45] LABS: ANION GAP 10 (5-13); BLOOD UREA NITROGEN 32 mg/dl (7-20); CARBON DIOXIDE 32 mmol/L (21-31); CHLORIDE 94 mmol/L (97-110); CREATININE 1.13 mg/dl (0.61-1.24); Estimated GFR > 60 mL/min (>60); GLUCOSE 107 mg/dl (70-220); POTASSIUM 4.2 mmol/L (3.5-5.1); SODIUM 136 mmol/L (135-144)
[2018-11-11] MEDS: BUMETANIDE 1 MG INJ IV ×3 (05:59→17:11)
[2018-11-11] MEDS: POLYETHYLENE GLYCOL 17 GM PACKET PO (09:00)
[2018-11-11] MEDS: GUAIFENESIN 20 MG/ML 5ML CUP PO ×3 (09:10→20:30)
[2018-11-11] MEDS: LISINOPRIL 5 MG TAB PO (09:11)
[2018-11-11] MEDS: ASPIRIN 81 MG TAB PO (09:11)
[2018-11-11] MEDS: FAMOTIDINE 20 MG TAB PO (09:11)
[2018-11-11] MEDS: AMIODARONE 200 MG TAB PO (09:12)
[2018-11-11] MEDS: FERROUS SULFATE (EC) 325 MG TAB PO ×2 (09:12→20:29)
[2018-11-11] MEDS: DOCUSATE SODIUM 100 MG CAP PO ×2 (09:13→20:29)
[2018-11-11] MEDS: TICAGRELOR 90 MG TABLET PO ×2 (09:21→20:39)
[2018-11-11] MEDS: ATORVASTATIN 80 MG TAB PO (20:29)
[2018-11-11] MEDS: DIPHENHYDRAMINE 50 MG CAP PO (20:29)
[2018-11-11] MEDS: TAMSULOSIN (SR) 0.4 MG CAP PO (20:29)
[2018-11-11] MEDS: ZOLPIDEM 5 MG TAB PO (22:13)
[2018-11-12] MEDS: GUAIFENESIN 20 MG/ML 5ML CUP PO ×3 (01:13→20:39)
[2018-11-12] MEDS: HYDROCODONE/APAP (5/325) TAB PO ×4 (01:14→20:39)
[2018-11-12] MEDS: BUMETANIDE 1 MG INJ IV ×2 (05:34→17:59)
[2018-11-12 05:40] LABS: ADD MAN DIFF? NO
[2018-11-12 05:45] LABS: BASOPHIL # 0.1 10^3/ul (0.0-0.1); BASOPHILS % 0.6 % (0.0-2.0); EOSINOPHILS # 0.7 10^3/ul (0.0-0.5); EOSINOPHILS % 6.5 % (0.0-7.0); HEMATOCRIT 36.5 % (42.0-52.0); HEMOGLOBIN 11.1 g/dl (14.0-18.0); LYMPHOCYTES # 2.8 10^3/ul (0.8-2.9); LYMPHOCYTES % 26.5 % (15.0-51.0); MEAN CORPUSCULAR HEMOGLOBIN 24.7 pg (29.0-33.0); MEAN CORPUSCULAR HGB CONC 30.4 g/dl (32.0-37.0); MEAN CORPUSCULAR VOLUME 81.3 fl (82.0-101.0); MEAN PLATELET VOLUME 10.3 fl (7.4-10.4); MONOCYTES % 9.8 % (0.0-11.0); NEUTROPHIL # 5.9 10^3/ul (1.6-7.5); PLATELET COUNT 626 10^3/UL (140-415); RED BLOOD COUNT 4.49 10^6/ul (4.70-6.10); RED CELL DISTRIBUTION WIDTH 17.5 % (11.5-14.5)
[2018-11-12 05:45] LABS: WHITE BLOOD COUNT 10.6 10^3/ul (4.8-10.8)
[2018-11-12 06:25] LABS: ANION GAP 11 (5-13); BLOOD UREA NITROGEN 32 mg/dl (7-20); CALCIUM 8.7 mg/dl (8.4-10.2); CARBON DIOXIDE 30 mmol/L (21-31); CHLORIDE 94 mmol/L (97-110); CREATININE 1.09 mg/dl (0.61-1.24); Estimated GFR > 60 mL/min (>60); GLUCOSE 105 mg/dl (70-220); POTASSIUM 3.9 mmol/L (3.5-5.1); SODIUM 135 mmol/L (135-144)
[2018-11-12] MEDS: POLYETHYLENE GLYCOL 17 GM PACKET PO (10:36)
[2018-11-12] MEDS: FAMOTIDINE 20 MG TAB PO (10:36)
[2018-11-12] MEDS: FERROUS SULFATE (EC) 325 MG TAB PO ×2 (10:36→20:39)
[2018-11-12] MEDS: DOCUSATE SODIUM 100 MG CAP PO ×2 (10:37→20:39)
[2018-11-12] MEDS: ASPIRIN 81 MG TAB PO (10:37)
[2018-11-12] MEDS: LISINOPRIL 5 MG TAB PO (10:38)
[2018-11-12] MEDS: AMIODARONE 200 MG TAB PO (10:38)
[2018-11-12] MEDS: TICAGRELOR 90 MG TABLET PO ×2 (10:43→21:04)
[2018-11-12] MEDS: DIPHENHYDRAMINE 50 MG CAP PO (20:39)
[2018-11-12] MEDS: ATORVASTATIN 80 MG TAB PO (20:39)
[2018-11-12] MEDS: TAMSULOSIN (SR) 0.4 MG CAP PO (20:39)
[2018-11-12] MEDS: ZOLPIDEM 5 MG TAB PO (21:43)
[2018-11-13] MEDS: GUAIFENESIN 20 MG/ML 5ML CUP PO ×2 (02:39→17:11)
[2018-11-13] MEDS: HYDROCODONE/APAP (5/325) TAB PO ×3 (02:40→17:11)
[2018-11-13] MEDS: BUMETANIDE 1 MG INJ IV (05:36)
[2018-11-13 06:09] LABS: ANION GAP 9 (5-13); BLOOD UREA NITROGEN 32 mg/dl (7-20); CALCIUM 8.9 mg/dl (8.4-10.2); CARBON DIOXIDE 34 mmol/L (21-31); CHLORIDE 91 mmol/L (97-110); CREATININE 1.06 mg/dl (0.61-1.24); Estimated GFR > 60 mL/min (>60); GLUCOSE 103 mg/dl (70-220); POTASSIUM 3.8 mmol/L (3.5-5.1); SODIUM 134 mmol/L (135-144)
[2018-11-13 06:50] LABS: MAGNESIUM 2.1 mg/dl (1.7-2.5)
[2018-11-13] MEDS: DOCUSATE SODIUM 100 MG CAP PO (08:53)
[2018-11-13] MEDS: POLYETHYLENE GLYCOL 17 GM PACKET PO (08:53)
[2018-11-13] MEDS: AMIODARONE 200 MG TAB PO (08:54)
[2018-11-13] MEDS: FERROUS SULFATE (EC) 325 MG TAB PO (08:54)
[2018-11-13] MEDS: ASPIRIN 81 MG TAB PO (08:54)
[2018-11-13] MEDS: POTASSIUM CHLORIDE (SR) 20 MEQ TAB PO (08:55)
[2018-11-13] MEDS: FAMOTIDINE 20 MG TAB PO (08:55)
[2018-11-13] MEDS: LISINOPRIL 5 MG TAB PO (08:55)
[2018-11-13] MEDS: TICAGRELOR 90 MG TABLET PO (08:59)
[2018-11-13] MEDS: BUMETANIDE 1 MG TAB PO (17:07)
== END 2018-11-13 18:26 | DRG 246 ==
LOC: 6WM 11-07 19:32 → E/R 16:31 → 6WM 20:14 → ICU 11-05 17:30
PROC: 027034Z Dilation of Coronary Artery, One Artery with Drug-eluting Intraluminal Device, Percutaneous Approach (ICD-10-PCS; principal; 2018-11-05 18:00)
PROC: 5A2204Z Restoration of Cardiac Rhythm, Single (ICD-10-PCS; 2018-11-05 18:00)
PROC: 4A023N7 Measurement of Cardiac Sampling and Pressure, Left Heart, Percutaneous Approach (ICD-10-PCS; 2018-11-05 18:00)
PROC: B211YZZ Fluoroscopy of Multiple Coronary Arteries using Other Contrast (ICD-10-PCS; 2018-11-05 18:00)
PROC: 5A12012 Performance of Cardiac Output, Single, Manual (ICD-10-PCS; 2018-11-05 18:00)
PROC: 02JA3ZZ Inspection of Heart, Percutaneous Approach (ICD-10-PCS; 2018-11-05 18:00)
PROC: 0BH17EZ Insertion of Endotracheal Airway into Trachea, Via Natural or Artificial Opening (ICD-10-PCS; 2018-11-05 18:04)
PROC: 5A1945Z Respiratory Ventilation, 24-96 Consecutive Hours (ICD-10-PCS; 2018-11-05 18:04)
DX: I21.4 Non-ST elevation (NSTEMI) myocardial infarction (principal); I46.2 Cardiac arrest due to underlying cardiac condition; I49.01 Ventricular fibrillation; J96.00 Acute respiratory failure, unspecified whether with hypoxia or hypercapnia; N17.0 Acute kidney failure with tubular necrosis; I50.43 Acute on chronic combined systolic (congestive) and diastolic (congestive) heart failure; R57.0 Cardiogenic shock; I47.2 Ventricular tachycardia; I42.9 Cardiomyopathy, unspecified; I87.2 Venous insufficiency (chronic) (peripheral); D63.8 Anemia in other chronic diseases classified elsewhere; N40.1 Benign prostatic hyperplasia with lower urinary tract symptoms; R33.8 Other retention of urine; Z87.440 Personal history of urinary (tract) infections; I25.10 Atherosclerotic heart disease of native coronary artery without angina pectoris; E66.9 Obesity, unspecified; Z68.38 Body mass index [BMI] 38.0-38.9, adult; I25.82 Chronic total occlusion of coronary artery; E78.5 Hyperlipidemia, unspecified; R07.89 Other chest pain
CPT/HCPCS: 31500; 36415; 36600; 71045; 71046; 74018; 78452; 80048; 80053; 82550; 82553; 82803; 82962; 83735; 83880; 84100; 84484; 85025; 85610; 87081; 92950; 93005; 93306; 93458; 94002; 94003; 94644; 94770; 96374; 97116; 97162; 97530; 99291-25

== ENCOUNTER 2018-11-21 09:59 | Inpatient (IN) | payer BC ==
[2018-11-21 11:01] LABS: ADD MAN DIFF? NO
[2018-11-21 11:02] LABS: WHITE BLOOD COUNT 11.1 10^3/ul (4.8-10.8)
[2018-11-21 11:02] LABS: BASOPHIL # 0.1 10^3/ul (0.0-0.1); BASOPHILS % 0.8 % (0.0-2.0); EOSINOPHILS # 1.2 10^3/ul (0.0-0.5); EOSINOPHILS % 11.1 % (0.0-7.0); HEMATOCRIT 34.8 % (42.0-52.0); HEMOGLOBIN 10.8 g/dl (14.0-18.0); LYMPHOCYTES # 2.9 10^3/ul (0.8-2.9); LYMPHOCYTES % 26.4 % (15.0-51.0); MEAN CORPUSCULAR HEMOGLOBIN 25.3 pg (29.0-33.0); MEAN CORPUSCULAR VOLUME 81.5 fl (82.0-101.0); MEAN PLATELET VOLUME 10.7 fl (7.4-10.4); MONOCYTE # 0.6 10^3/ul (0.3-0.9); MONOCYTES % 5.7 % (0.0-11.0); NEUTROPHIL # 6.2 10^3/ul (1.6-7.5); NEUTROPHILS % 55.6 % (39.0-77.0); PLATELET COUNT 398 10^3/UL (140-415); RED BLOOD COUNT 4.27 10^6/ul (4.70-6.10); RED CELL DISTRIBUTION WIDTH 18.3 % (11.5-14.5)
[2018-11-21 11:20] LABS: INR 0.98; PROTIME 13.1 Sec (11.9-14.9)
[2018-11-21 11:41] LABS: ALANINE AMINOTRANSFERASE 44 IU/L (13-69); ALBUMIN 3.9 g/dl (3.3-4.9); ALBUMIN/GLOBULIN RATIO 1.08; ALKALINE PHOSPHATASE 121 IU/L (42-121); ANION GAP 8 (5-13); ASPARTATE AMINO TRANSFERASE 35 IU/L (15-46); BLOOD UREA NITROGEN 20 mg/dl (7-20); CALCIUM 9.2 mg/dl (8.4-10.2); CARBON DIOXIDE 28 mmol/L (21-31); CHLORIDE 104 mmol/L (97-110); CREATININE 1.05 mg/dl (0.61-1.24); Estimated GFR > 60 mL/min (>60); GLUCOSE 115 mg/dl (70-220); LIPASE 224 U/L (23-300); POTASSIUM 4.6 mmol/L (3.5-5.1); SODIUM 140 mmol/L (135-144); TOTAL PROTEIN 7.5 g/dl (6.1-8.1)
[2018-11-21 11:50] LABS: B-TYPE NATRIURETIC PEPTIDE 1160 PG/ML (0-125); TROPONIN-I < 0.012 ng/ml (0.000-0.120)
[2018-11-21 14:16] LABS: TROPONIN-I < 0.012 ng/ml (0.000-0.120)
[2018-11-21] MEDS: FOLIC ACID 1 MG TAB GTB (16:28)
[2018-11-21] MEDS: ASPIRIN 81 MG TAB PO (16:28)
[2018-11-21] MEDS: LISINOPRIL 5 MG TAB PO (16:30)
[2018-11-21] MEDS ORDERED: DOCUSATE SODIUM 100 MG CAP PO (16:30)
[2018-11-21] MEDS ORDERED: ZOLPIDEM 5 MG TAB PO (16:30)
[2018-11-21] MEDS ORDERED: BISACODYL 10 MG SUPP PR (16:30)
[2018-11-21] MEDS ORDERED: NACL 0.9% 3 ML SYG IV (16:30)
[2018-11-21] MEDS ORDERED: ACETAMINOPHEN 325 MG TAB PO (16:30)
[2018-11-21] MEDS ORDERED: BISACODYL (EC) 5 MG TAB PO (16:30)
[2018-11-21] MEDS ORDERED: morphine 2 MG INJ IV (16:30)
[2018-11-21] MEDS ORDERED: MAGNESIUM HYDROXIDE 30ML CUP PO (16:30)
[2018-11-21] MEDS: BUMETANIDE 1 MG TAB PO (17:57)
[2018-11-21] MEDS: ATORVASTATIN 80 MG TAB PO (21:38)
[2018-11-21] MEDS: FERROUS SULFATE (EC) 325 MG TAB PO (21:39)
[2018-11-21] MEDS: TAMSULOSIN (SR) 0.4 MG CAP PO (21:39)
[2018-11-21 21:56] LABS: CREATINE KINASE 29 IU/L (23-200)
[2018-11-21 22:09] LABS: CK INDEX 2.3; CK-MB 0.67 ng/ml (0.0-2.4); TROPONIN-I 0.015 ng/ml (0.000-0.120)
[2018-11-21] MEDS: FAMOTIDINE 20 MG INJ IV (22:14)
[2018-11-21] MEDS: TICAGRELOR 90 MG TABLET PO (22:23)
[2018-11-22 06:34] LABS: ADD MAN DIFF? NO
[2018-11-22 06:43] LABS: WHITE BLOOD COUNT 11.9 10^3/ul (4.8-10.8)
[2018-11-22 06:43] LABS: BASOPHIL # 0.1 10^3/ul (0.0-0.1); BASOPHILS % 0.9 % (0.0-2.0); EOSINOPHILS # 1.3 10^3/ul (0.0-0.5); EOSINOPHILS % 10.8 % (0.0-7.0); HEMATOCRIT 32.6 % (42.0-52.0); HEMOGLOBIN 10.1 g/dl (14.0-18.0); LYMPHOCYTES # 3.2 10^3/ul (0.8-2.9); LYMPHOCYTES % 27.2 % (15.0-51.0); MEAN CORPUSCULAR HEMOGLOBIN 24.9 pg (29.0-33.0); MEAN CORPUSCULAR VOLUME 80.3 fl (82.0-101.0); MEAN PLATELET VOLUME 10.6 fl (7.4-10.4); MONOCYTE # 0.8 10^3/ul (0.3-0.9); MONOCYTES % 6.8 % (0.0-11.0); NEUTROPHIL # 6.4 10^3/ul (1.6-7.5); PLATELET COUNT 378 10^3/UL (140-415); RED BLOOD COUNT 4.06 10^6/ul (4.70-6.10); RED CELL DISTRIBUTION WIDTH 18.6 % (11.5-14.5)
[2018-11-22 07:09] LABS: ALANINE AMINOTRANSFERASE 39 IU/L (13-69); ALBUMIN 3.6 g/dl (3.3-4.9); ALBUMIN/GLOBULIN RATIO 1.05; ALKALINE PHOSPHATASE 101 IU/L (42-121); ANION GAP 12 (5-13); ASPARTATE AMINO TRANSFERASE 32 IU/L (15-46); BLOOD UREA NITROGEN 17 mg/dl (7-20); CALCIUM 9.1 mg/dl (8.4-10.2); CARBON DIOXIDE 26 mmol/L (21-31); CHLORIDE 102 mmol/L (97-110); CHOL/HDL RATIO 4.7 RATIO; CHOLESTEROL 141 mg/dl (100-200); CREATININE 1.01 mg/dl (0.61-1.24); Estimated GFR > 60 mL/min (>60); GLUCOSE 99 mg/dl (70-220); HDL CHOLESTEROL 30 mg/dl (30-78); LDL CHOLESTEROL,CALCULATED 72 mg/dl; MAGNESIUM 2.1 mg/dl (1.7-2.5); POTASSIUM 4.1 mmol/L (3.5-5.1); SODIUM 140 mmol/L (135-144); TRIGLYCERIDES 193 mg/dl (0-149)
[2018-11-22] MEDS: HYDROCODONE/APAP (5/325) TAB PO ×2 (07:14→14:01)
[2018-11-22 07:19] LABS: FREE THYROXINE INDEX (Calc) 2.58 ug/ml (0.65-3.89); T3 UPTAKE 35.4 % (23.5-40.5); T4 (THYROXINE) 7.3 ug/dl (5.5-11.0)
[2018-11-22 07:33] LABS: HEMOGLOBIN A1C 5.5 % (0-5.9)
[2018-11-22] MEDS: ASPIRIN 81 MG TAB PO (08:59)
[2018-11-22] MEDS: FERROUS SULFATE (EC) 325 MG TAB PO (08:59)
[2018-11-22] MEDS: AMIODARONE 200 MG TAB PO (09:00)
[2018-11-22] MEDS: FOLIC ACID 1 MG TAB GTB (09:00)
[2018-11-22] MEDS: CYANOCOBALAMIN 500 MCG TAB GTB (09:00)
[2018-11-22] MEDS: LISINOPRIL 5 MG TAB PO (09:01)
[2018-11-22] MEDS: TICAGRELOR 90 MG TABLET PO (09:03)
[2018-11-22] MEDS: FAMOTIDINE 20 MG INJ IV (09:04)
[2018-11-22] MEDS: BUMETANIDE 1 MG TAB PO ×2 (09:12→17:49)
[2018-11-22] MEDS: ONDANSETRON 4 MG INJ IV (10:01)
[2018-11-22] MEDS ORDERED: morphine LIQ (10 MG/5 ML) CUP PO (15:00)
== END 2018-11-22 18:01 | disposition home or self-care (01) | DRG 281 ==
LOC: E/R 09:59 → TEL 15:17
DX: R07.89 Other chest pain (principal); I21.9 Acute myocardial infarction, unspecified; I42.9 Cardiomyopathy, unspecified; E78.00 Pure hypercholesterolemia, unspecified; I25.10 Atherosclerotic heart disease of native coronary artery without angina pectoris; J45.909 Unspecified asthma, uncomplicated; Z86.74 Personal history of sudden cardiac arrest; Z95.5 Presence of coronary angioplasty implant and graft; Z79.82 Long term (current) use of aspirin
CPT/HCPCS: 36415; 71045; 80053; 80061; 82550; 82553; 83036; 83690; 83735; 83880; 84436; 84479; 84484; 85025; 85610; 87081; 93005; 97161; 99285-25

== ENCOUNTER 2018-12-20 19:51 | Emergency (ER) | payer BC ==
[2018-12-20 20:56] LABS: URINE BLOOD (Dip) POC 3+ (NEGATIVE); URINE GLUCOSE (Dip) POC Negative (NEGATIVE); URINE KETONES (Dip) POC Trace (NEGATIVE); URINE LEUKOCYTE EST (Dip) POC 2+ (NEGATIVE); URINE NITRITE (Dip) POC Positive (NEGATIVE); URINE TOTAL PROTEIN POC 1+ (NEGATIVE)
[2018-12-20 20:56] LABS: URINE PH (Dip) POC 5.5 (5.0-8.5)
[2018-12-20 21:07] LABS: ADD MAN DIFF? NO
[2018-12-20 21:08] LABS: BASOPHIL # 0.1 10^3/ul (0.0-0.1); BASOPHILS % 0.5 % (0.0-2.0); EOSINOPHILS # 0.9 10^3/ul (0.0-0.5); EOSINOPHILS % 7.2 % (0.0-7.0); HEMATOCRIT 40.3 % (42.0-52.0); HEMOGLOBIN 12.2 g/dl (14.0-18.0); LYMPHOCYTES # 4.2 10^3/ul (0.8-2.9); LYMPHOCYTES % 32.8 % (15.0-51.0); MEAN CORPUSCULAR HEMOGLOBIN 25.4 pg (29.0-33.0); MEAN CORPUSCULAR HGB CONC 30.3 g/dl (32.0-37.0); MEAN PLATELET VOLUME 9.9 fl (7.4-10.4); MONOCYTE # 0.7 10^3/ul (0.3-0.9); MONOCYTES % 5.8 % (0.0-11.0); NEUTROPHIL # 6.8 10^3/ul (1.6-7.5); NEUTROPHILS % 53.4 % (39.0-77.0); PLATELET COUNT 323 10^3/UL (140-415)
[2018-12-20 21:08] LABS: WHITE BLOOD COUNT 12.7 10^3/ul (4.8-10.8)
[2018-12-20 21:23] LABS: INR 0.95; PROTIME 12.8 Sec (11.9-14.9)
[2018-12-20 21:26] LABS: ALANINE AMINOTRANSFERASE 17 IU/L (13-69); ALBUMIN 4.8 g/dl (3.3-4.9); ALBUMIN/GLOBULIN RATIO 1.33; ALKALINE PHOSPHATASE 111 IU/L (42-121); ANION GAP 13 (5-13); ASPARTATE AMINO TRANSFERASE 30 IU/L (15-46); BILIRUBIN,INDIRECT 0.1 mg/dl (0-1.1); BILIRUBIN,TOTAL 0.1 mg/dl (0.2-1.3); BLOOD UREA NITROGEN 26 mg/dl (7-20); CALCIUM 9.5 mg/dl (8.4-10.2); CARBON DIOXIDE 25 mmol/L (21-31); CHLORIDE 103 mmol/L (97-110); CREATININE 1.17 mg/dl (0.61-1.24); Estimated GFR > 60 mL/min (>60); GLUCOSE 96 mg/dl (70-220); POTASSIUM 4.2 mmol/L (3.5-5.1); SODIUM 141 mmol/L (135-144); TOTAL PROTEIN 8.4 g/dl (6.1-8.1)
[2018-12-20 21:37] LABS: TROPONIN-I < 0.012 ng/ml (0.000-0.120)
[2018-12-21] MEDS: CIPROFLOXACIN 500 MG TAB PO (00:12)
== END 2018-12-21 00:17 | disposition home or self-care (01) ==
LOC: E/R 12-21 00:17
DX: N39.0 Urinary tract infection, site not specified (principal); R07.9 Chest pain, unspecified; I11.0 Hypertensive heart disease with heart failure; I50.9 Heart failure, unspecified; I25.10 Atherosclerotic heart disease of native coronary artery without angina pectoris; I25.2 Old myocardial infarction; J45.909 Unspecified asthma, uncomplicated; Z98.61 Coronary angioplasty status; Z79.82 Long term (current) use of aspirin; Z79.01 Long term (current) use of anticoagulants
CPT/HCPCS: 71045; 74176; 80053; 81003; 84484; 85025; 85610; 93005; 99285-25

== ENCOUNTER 2019-01-11 07:50 | Emergency (ER) | payer BC ==
[2019-01-11] MEDS: ONDANSETRON (ODT) 4 MG TAB ODT (08:28)
[2019-01-11 08:35] LABS: ADD UMIC YES; UR ASCORBIC ACID NEGATIVE (NEGATIVE); UR BACTERIA FEW /HPF (NONE SEEN); UR BILIRUBIN (Dip) NEGATIVE (NEGATIVE); UR BLOOD (Dip) 2+ mg/dL (NEGATIVE); UR CLARITY SLIGHTLY CLOUDY (CLEAR); UR COLOR YELLOW (YELLOW); UR GLUCOSE (Dip) NEGATIVE (NEGATIVE); UR KETONES (Dip) NEGATIVE (NEGATIVE); UR LEUKOCYTE ESTERASE (Dip) 1+ Leu/ul (NEGATIVE); UR MUCUS MODERATE /HPF (NONE SEEN); UR NITRITE (Dip) NEGATIVE (NEGATIVE); UR RBC 4 /HPF (0-5); UR SPECIFIC GRAVITY (Dip) 1.026 (1.003-1.030); UR SQUAMOUS EPITHELIAL CELL FEW /HPF (FEW); UR TOTAL PROTEIN (Dip) NEGATIVE (NEGATIVE); UR UROBILINOGEN (Dip) NEGATIVE (NEGATIVE); UR WBC 24 /HPF (0-5)
[2019-01-11 08:40] LABS: ADD MAN DIFF? NO
[2019-01-11 08:42] LABS: ABNORMAL IP MESSAGE 1; BASOPHILS % 0.5 % (0.0-2.0); EOSINOPHILS # 0.4 10^3/ul (0.0-0.5); EOSINOPHILS % 5.6 % (0.0-7.0); HEMATOCRIT 41.2 % (42.0-52.0); HEMOGLOBIN 12.8 g/dl (14.0-18.0); LYMPHOCYTES # 2.1 10^3/ul (0.8-2.9); LYMPHOCYTES % 26.2 % (15.0-51.0); MEAN CORPUSCULAR HEMOGLOBIN 26.7 pg (29.0-33.0); MEAN CORPUSCULAR HGB CONC 31.1 g/dl (32.0-37.0); MEAN CORPUSCULAR VOLUME 85.8 fl (82.0-101.0); MEAN PLATELET VOLUME 10.1 fl (7.4-10.4); MONOCYTE # 0.6 10^3/ul (0.3-0.9); MONOCYTES % 7.4 % (0.0-11.0); NEUTROPHIL # 4.7 10^3/ul (1.6-7.5); NEUTROPHILS % 60.2 % (39.0-77.0); PLATELET COUNT 246 10^3/UL (140-415); POSITIVE DIFF @See below; RED CELL DISTRIBUTION WIDTH 22.6 % (11.5-14.5)
[2019-01-11 08:42] LABS: WHITE BLOOD COUNT 7.8 10^3/ul (4.8-10.8)
[2019-01-11 09:00] LABS: ALANINE AMINOTRANSFERASE 38 IU/L (13-69); ALBUMIN 4.4 g/dl (3.3-4.9); ALBUMIN/GLOBULIN RATIO 1.29; ALKALINE PHOSPHATASE 101 IU/L (42-121); ANION GAP 9 (5-13); ASPARTATE AMINO TRANSFERASE 38 IU/L (15-46); BILIRUBIN,INDIRECT 0.2 mg/dl (0-1.1); BILIRUBIN,TOTAL 0.2 mg/dl (0.2-1.3); BLOOD UREA NITROGEN 23 mg/dl (7-20); CALCIUM 9.3 mg/dl (8.4-10.2); CARBON DIOXIDE 24 mmol/L (21-31); CHLORIDE 107 mmol/L (97-110); Estimated GFR > 60 mL/min (>60); GLUCOSE 101 mg/dl (70-220); LIPASE 91 U/L (23-300); POTASSIUM 4.2 mmol/L (3.5-5.1); SODIUM 140 mmol/L (135-144); TOTAL PROTEIN 7.8 g/dl (6.1-8.1)
[2019-01-11] MEDS: CIPROFLOXACIN 500 MG TAB PO (09:33)
== END 2019-01-11 09:48 | disposition home health service (06) ==
LOC: E/R 09:48
DX: N39.0 Urinary tract infection, site not specified (principal); I25.2 Old myocardial infarction; I25.10 Atherosclerotic heart disease of native coronary artery without angina pectoris; I11.0 Hypertensive heart disease with heart failure; I50.9 Heart failure, unspecified; Z59.0 Homelessness; Z79.01 Long term (current) use of anticoagulants; Z98.61 Coronary angioplasty status; Z79.82 Long term (current) use of aspirin
CPT/HCPCS: 36415; 80053; 81001; 83690; 85025; 99283

== ENCOUNTER 2019-01-13 05:41 | Emergency (ER) | payer BC ==
[2019-01-13] MEDS: SOD CHLORIDE 0.9% 1,000 ML IV (07:01)
[2019-01-13] MEDS: ONDANSETRON 4 MG INJ IV (07:01)
[2019-01-13] MEDS: LOPERAMIDE 2 MG CAP PO (07:01)
[2019-01-13 07:20] LABS: ADD MAN DIFF? NO
[2019-01-13 07:23] LABS: ABNORMAL IP MESSAGE 1; BASOPHIL # 0.1 10^3/ul (0.0-0.1); BASOPHILS % 0.6 % (0.0-2.0); EOSINOPHILS # 0.6 10^3/ul (0.0-0.5); EOSINOPHILS % 6.3 % (0.0-7.0); HEMATOCRIT 39.5 % (42.0-52.0); HEMOGLOBIN 12.1 g/dl (14.0-18.0); LYMPHOCYTES # 2.8 10^3/ul (0.8-2.9); MEAN CORPUSCULAR HEMOGLOBIN 26.3 pg (29.0-33.0); MEAN CORPUSCULAR HGB CONC 30.6 g/dl (32.0-37.0); MEAN CORPUSCULAR VOLUME 85.9 fl (82.0-101.0); MEAN PLATELET VOLUME 10.4 fl (7.4-10.4); MONOCYTE # 0.7 10^3/ul (0.3-0.9); MONOCYTES % 6.6 % (0.0-11.0); NEUTROPHIL # 5.8 10^3/ul (1.6-7.5); NEUTROPHILS % 58.1 % (39.0-77.0); PLATELET COUNT 258 10^3/UL (140-415); POSITIVE DIFF @See below; RED CELL DISTRIBUTION WIDTH 22.6 % (11.5-14.5)
[2019-01-13 07:39] LABS: ALANINE AMINOTRANSFERASE 30 IU/L (13-69); ALBUMIN/GLOBULIN RATIO 1.29; ALKALINE PHOSPHATASE 89 IU/L (42-121); ANION GAP 13 (5-13); ASPARTATE AMINO TRANSFERASE 24 IU/L (15-46); BILIRUBIN,INDIRECT 0.2 mg/dl (0-1.1); BILIRUBIN,TOTAL 0.2 mg/dl (0.2-1.3); BLOOD UREA NITROGEN 18 mg/dl (7-20); CALCIUM 8.8 mg/dl (8.4-10.2); CARBON DIOXIDE 22 mmol/L (21-31); CHLORIDE 108 mmol/L (97-110); CREATININE 0.92 mg/dl (0.61-1.24); Estimated GFR > 60 mL/min (>60); GLUCOSE 87 mg/dl (70-220); LIPASE 82 U/L (23-300); POTASSIUM 4.1 mmol/L (3.5-5.1); SODIUM 143 mmol/L (135-144); TOTAL PROTEIN 7.1 g/dl (6.1-8.1)
[2019-01-13 07:51] LABS: TROPONIN-I 0.014 ng/ml (0.000-0.120)
[2019-01-13 08:47] LABS: ADD UMIC YES; UR ASCORBIC ACID NEGATIVE (NEGATIVE); UR BACTERIA FEW /HPF (NONE SEEN); UR BILIRUBIN (Dip) NEGATIVE (NEGATIVE); UR BLOOD (Dip) 1+ mg/dL (NEGATIVE); UR CLARITY SLIGHTLY CLOUDY (CLEAR); UR COLOR YELLOW (YELLOW); UR GLUCOSE (Dip) NEGATIVE (NEGATIVE); UR KETONES (Dip) NEGATIVE (NEGATIVE); UR LEUKOCYTE ESTERASE (Dip) 1+ Leu/ul (NEGATIVE); UR MUCUS FEW /HPF (NONE SEEN); UR NITRITE (Dip) NEGATIVE (NEGATIVE); UR RBC 5 /HPF (0-5); UR SPECIFIC GRAVITY (Dip) 1.028 (1.003-1.030); UR SQUAMOUS EPITHELIAL CELL FEW /HPF (FEW); UR TOTAL PROTEIN (Dip) NEGATIVE (NEGATIVE); UR UROBILINOGEN (Dip) NEGATIVE (NEGATIVE); UR WBC 18 /HPF (0-5)
== END 2019-01-13 08:53 | disposition home or self-care (01) ==
LOC: E/R 05:41
DX: R11.10 Vomiting, unspecified (principal); R19.7 Diarrhea, unspecified; I25.10 Atherosclerotic heart disease of native coronary artery without angina pectoris; J45.909 Unspecified asthma, uncomplicated; I25.2 Old myocardial infarction; I11.0 Hypertensive heart disease with heart failure; I50.9 Heart failure, unspecified; Z98.61 Coronary angioplasty status; Z79.82 Long term (current) use of aspirin; Z79.01 Long term (current) use of anticoagulants
CPT/HCPCS: 80053; 81001; 83690; 84484; 85025; 93005; 96374; 99284-25

== ENCOUNTER 2019-02-10 06:18 | Emergency (ER) | payer BC ==
[2019-02-10 07:17] LABS: ADD MAN DIFF? NO
[2019-02-10 07:21] LABS: BASOPHIL # 0.1 10^3/ul (0.0-0.1); BASOPHILS % 0.5 % (0.0-2.0); EOSINOPHILS # 0.4 10^3/ul (0.0-0.5); EOSINOPHILS % 4.1 % (0.0-7.0); HEMOGLOBIN 14.1 g/dl (14.0-18.0); LYMPHOCYTES # 2.4 10^3/ul (0.8-2.9); LYMPHOCYTES % 22.6 % (15.0-51.0); MEAN CORPUSCULAR HEMOGLOBIN 27.8 pg (29.0-33.0); MEAN CORPUSCULAR HGB CONC 31.3 g/dl (32.0-37.0); MEAN CORPUSCULAR VOLUME 88.8 fl (82.0-101.0); MEAN PLATELET VOLUME 10.4 fl (7.4-10.4); MONOCYTES % 8.8 % (0.0-11.0); NEUTROPHIL # 6.9 10^3/ul (1.6-7.5); NEUTROPHILS % 63.6 % (39.0-77.0); PLATELET COUNT 279 10^3/UL (140-415); RED BLOOD COUNT 5.07 10^6/ul (4.70-6.10); RED CELL DISTRIBUTION WIDTH 19.7 % (11.5-14.5)
[2019-02-10 07:21] LABS: WHITE BLOOD COUNT 10.8 10^3/ul (4.8-10.8)
[2019-02-10] MEDS: ONDANSETRON 4 MG INJ IV (07:22)
[2019-02-10 07:32] LABS: ADD UMIC YES; UR ASCORBIC ACID NEGATIVE (NEGATIVE); UR BACTERIA FEW /HPF (NONE SEEN); UR BILIRUBIN (Dip) NEGATIVE (NEGATIVE); UR BLOOD (Dip) 1+ mg/dL (NEGATIVE); UR BUDDING YEAST FEW /HPF (NONE SEEN); UR CLARITY SLIGHTLY CLOUDY (CLEAR); UR COLOR YELLOW (YELLOW); UR GLUCOSE (Dip) NEGATIVE (NEGATIVE); UR KETONES (Dip) NEGATIVE (NEGATIVE); UR LEUKOCYTE ESTERASE (Dip) 2+ Leu/ul (NEGATIVE); UR MUCUS FEW /HPF (NONE SEEN); UR NITRITE (Dip) POSITIVE (NEGATIVE); UR RBC 9 /HPF (0-5); UR SPECIFIC GRAVITY (Dip) 1.026 (1.003-1.030); UR SQUAMOUS EPITHELIAL CELL FEW /HPF (FEW); UR TOTAL PROTEIN (Dip) NEGATIVE (NEGATIVE); UR UROBILINOGEN (Dip) NEGATIVE (NEGATIVE); UR WBC 90 /HPF (0-5)
[2019-02-10 07:45] LABS: ALANINE AMINOTRANSFERASE 20 IU/L (13-69); ALBUMIN 4.4 g/dl (3.3-4.9); ALBUMIN/GLOBULIN RATIO 1.41; ALKALINE PHOSPHATASE 85 IU/L (42-121); ANION GAP 12 (5-13); ASPARTATE AMINO TRANSFERASE 23 IU/L (15-46); BILIRUBIN,INDIRECT 0.5 mg/dl (0-1.1); BILIRUBIN,TOTAL 0.5 mg/dl (0.2-1.3); BLOOD UREA NITROGEN 20 mg/dl (7-20); CALCIUM 9.2 mg/dl (8.4-10.2); CARBON DIOXIDE 24 mmol/L (21-31); CHLORIDE 106 mmol/L (97-110); CREATININE 0.96 mg/dl (0.61-1.24); Estimated GFR > 60 mL/min (>60); GLUCOSE 101 mg/dl (70-220); LIPASE 53 U/L (23-300); POTASSIUM 4.6 mmol/L (3.5-5.1); SODIUM 142 mmol/L (135-144); TOTAL PROTEIN 7.5 g/dl (6.1-8.1)
[2019-02-10 07:57] LABS: TROPONIN-I < 0.012 ng/ml (0.000-0.120)
== END 2019-02-10 11:14 | disposition home or self-care (01) ==
LOC: E/R 06:18
DX: N30.00 Acute cystitis without hematuria (principal); I25.10 Atherosclerotic heart disease of native coronary artery without angina pectoris; J45.909 Unspecified asthma, uncomplicated; I11.0 Hypertensive heart disease with heart failure; I50.9 Heart failure, unspecified; I25.2 Old myocardial infarction; Z79.82 Long term (current) use of aspirin; Z79.01 Long term (current) use of anticoagulants; Z98.61 Coronary angioplasty status
CPT/HCPCS: 36415; 80053; 81001; 83690; 84484; 85025; 87045; 87075; 93005; 96374; 99284-25

== ENCOUNTER 2019-02-18 18:34 | Emergency (ER) | payer BC ==
[2019-02-18 19:20] LABS: ADD MAN DIFF? NO
[2019-02-18 19:23] LABS: WHITE BLOOD COUNT 6.1 10^3/ul (4.8-10.8)
[2019-02-18 19:23] LABS: BASOPHILS % 0.3 % (0.0-2.0); EOSINOPHILS # 0.3 10^3/ul (0.0-0.5); EOSINOPHILS % 4.7 % (0.0-7.0); HEMATOCRIT 40.6 % (42.0-52.0); HEMOGLOBIN 12.8 g/dl (14.0-18.0); LYMPHOCYTES # 0.9 10^3/ul (0.8-2.9); MEAN CORPUSCULAR HEMOGLOBIN 28.4 pg (29.0-33.0); MEAN CORPUSCULAR HGB CONC 31.5 g/dl (32.0-37.0); MEAN CORPUSCULAR VOLUME 90.2 fl (82.0-101.0); MEAN PLATELET VOLUME 10.4 fl (7.4-10.4); MONOCYTE # 0.5 10^3/ul (0.3-0.9); MONOCYTES % 8.8 % (0.0-11.0); NEUTROPHIL # 4.4 10^3/ul (1.6-7.5); PLATELET COUNT 188 10^3/UL (140-415); RED CELL DISTRIBUTION WIDTH 18.3 % (11.5-14.5)
[2019-02-18] MEDS: FUROSEMIDE 40 MG INJ IV (19:25)
[2019-02-18 19:41] LABS: ALANINE AMINOTRANSFERASE 29 IU/L (13-69); ALBUMIN/GLOBULIN RATIO 1.33; ALKALINE PHOSPHATASE 88 IU/L (42-121); ANION GAP 9 (5-13); ASPARTATE AMINO TRANSFERASE 26 IU/L (15-46); BILIRUBIN,INDIRECT 0.3 mg/dl (0-1.1); BILIRUBIN,TOTAL 0.3 mg/dl (0.2-1.3); BLOOD UREA NITROGEN 19 mg/dl (7-20); CARBON DIOXIDE 28 mmol/L (21-31); CHLORIDE 102 mmol/L (97-110); CREATININE 0.88 mg/dl (0.61-1.24); Estimated GFR > 60 mL/min (>60); GLUCOSE 94 mg/dl (70-220); LIPASE 93 U/L (23-300); POTASSIUM 4.3 mmol/L (3.5-5.1); SODIUM 139 mmol/L (135-144)
[2019-02-18 19:53] LABS: B-TYPE NATRIURETIC PEPTIDE 634 PG/ML (0-125); TROPONIN-I < 0.012 ng/ml (0.000-0.120)
== END 2019-02-18 20:44 | disposition home or self-care (01) ==
LOC: E/R 18:34
DX: R06.02 Shortness of breath (principal); I11.0 Hypertensive heart disease with heart failure; I50.9 Heart failure, unspecified; I25.10 Atherosclerotic heart disease of native coronary artery without angina pectoris; J45.901 Unspecified asthma with (acute) exacerbation; I25.2 Old myocardial infarction; Z79.01 Long term (current) use of anticoagulants; Z79.82 Long term (current) use of aspirin; Z98.61 Coronary angioplasty status
CPT/HCPCS: 36415; 71045; 80053; 83690; 83880; 84484; 85025; 96374; 99285-25